=== PATIENT | female | born 1970 | race Caucasian/White ===

== ENCOUNTER 2019-12-23 12:30 | Outpatient (CLI) | payer BC ==
--- NOTE | 2019-12-23 14:02 | ULT ---
THYROID ULTRASOUND: 12/23/19 HISTORY: Goiter and hypothyroidism. COMPARISON: Comparison made to an outside thyroid ultrasound exam from [facility] dated 11/26/17. That exam de scribed enlarged heterogeneous thyroid lobes. A nodule in the right lobe was measured at 6.5 x 4.8 x 3.0 cm. A nodule in the left lobe was measured at 4.0 x 1.5 x 1.4 cm. FINDINGS: Both lobes are enlarged and very heterogeneous and have a similar appearance to the prior study. The large heterogeneous right lobe does not appear significantly changed. There are complex areas within this lobe with some cystic areas. A nodular area in the mid right lobe measures 5.3 x 3.5 x 2.8 cm to day and has a similar appearance to the prior exam. There are two nodular densities in the inferior r ight lobe, one near the isthmus, each measuring 2 to 3 cm which are difficult to define. These were n ot measured on the prior exam; however, the appearance in this region appears similar on both ultraso unds. Left lobe is very heterogeneous. A nodular area in the inferior left lobe today measures approximatel y 1.0 cm. the question nodule seen previously in the left lobe is not well delineated today. Right lobe measurements: 6.5 x 3.2 x 4.1 cm. Left lobe measurements: 5.5 x 1.7 x 1.7 cm. Isthmus: 0.3 cm. IMPRESSION: Both lobes are enlarged and heterogeneous. Both lobes show internal nodularity with discrete nodules difficult to delineate. Overall appearance appears stable from the outside exam of 11/26/17. POS: ATA
== END 2019-12-23 12:31 | disposition home or self-care (01) ==
LOC: SCSULT 12:30
PROVIDERS: ATTEND Internal Medicine Endocrinology, Diabetes & Metabolism
DX: E03.9 Hypothyroidism, unspecified (principal); E04.2 Nontoxic multinodular goiter
CPT/HCPCS: 76536

== ENCOUNTER 2022-02-17 08:00 | Inpatient (IN) | payer BC ==
[2022-02-17] MEDS ORDERED: Ondansetron ODT 4 MG TAB PO PRN (08:44)
[2022-02-17] MEDS ORDERED: Midazolam HCl 2 mg/2 ml Vial SLOW IVP PRN (08:47)
[2022-02-17 08:59] VITALS: BMI 22.4
[2022-02-17] MEDS ORDERED: Midazolam HCl 2 mg/2 ml Vial SLOW IVP SCH (09:00)
[2022-02-17] MEDS ORDERED: Famotidine/PF 20 mg/2ml Vial SLOW IVP SCH (09:00)
[2022-02-17] MEDS: Ondansetron PF 4 MG/2 ML Vial IVP PRN (09:25)
[2022-02-17] MEDS: Sodium Chloride 0.9% 1,000 ML IV SCH ×2 (09:25→23:29)
[2022-02-17] MEDS ORDERED: Piperacillin/Tazobactam 3.375 GM in Sodium Chloride 0.9% 100 ML IVPB SCH (10:00)
[2022-02-17 11:00] LABS: SARS-CoV-2 NAA Rapid Test Not Detected (NotDetected)
[2022-02-17] MEDS ORDERED: Succinylcholine 200 MG/10 ml SYRINGE FS ONE (11:17)
[2022-02-17] MEDS ORDERED: PROPOFOL 200 MG/20 ML VIAL ONE (11:17)
[2022-02-17] MEDS ORDERED: Rocuronium Bromide 10 MG/ML (10ML VIAL) ONE (11:17)
[2022-02-17] MEDS ORDERED: Dexamethasone 20 MG/5 ML VIAL ONE (11:17)
[2022-02-17] MEDS ORDERED: Ondansetron PF 4 MG/2 ML Vial ONE (11:17)
[2022-02-17] MEDS ORDERED: Lidocaine 1% MPF 2 ML VIAL ONE (11:17)
[2022-02-17] MEDS ORDERED: Morphine Sulfate 2 MG/ML SYRINGE SLOW IVP PRN (12:08)
[2022-02-17] MEDS ORDERED: Meperidine HCl/PF 25 MG/ML VIAL SLOW IVP PRN (12:08)
[2022-02-17] MEDS ORDERED: Promethazine HCl 25 MG/ML VIAL IVPB PRN (12:08)
[2022-02-17] MEDS ORDERED: Ondansetron HCl/PF 4 MG/2 ML Vial IVP PRN (12:08)
[2022-02-17] MEDS ORDERED: Promethazine HCl 25 MG/ML VIAL IM PRN (12:08)
[2022-02-17] MEDS ORDERED: Promethazine HCl 25 MG/ML VIAL ONE (12:26)
[2022-02-17] MEDS: Piperacillin/Tazobactam 3.375 GM in Sodium Chloride 0.9% 100 ML IVPB SCH ×2 (13:17→20:58)
[2022-02-17] MEDS: Promethazine HCl 12.5 MG in Sodium Chloride 0.9% 50 ML IVPB PRN ×2 (16:41→23:33)
[2022-02-17] MEDS: SUMAtriptan Succinate 6 MG/0.5 ML VIAL SC PRN (20:55)
[2022-02-17] MEDS: Pantoprazole 40 MG VIAL IVP SCH (20:56)
[2022-02-18] MEDS ORDERED: Promethazine HCl 12.5 MG in Sodium Chloride 0.9% 50 ML IVPB PRN (02:26)
[2022-02-18] MEDS ORDERED: clonazePAM 1 MG TAB PO PRN (04:00)
[2022-02-18] MEDS: Calcium Carbonate 500 MG ChewTAB PO PRN (04:30)
[2022-02-18] MEDS: Piperacillin/Tazobactam 3.375 GM in Sodium Chloride 0.9% 100 ML IVPB SCH ×3 (06:02→21:45)
[2022-02-18 06:17] LABS: #Lymphocytes 1.6 thou/uL (1.20-3.40); %Eosinophils 0.2 % (0.0-10.0); %Lymphocytes 16.9 % (21.0-51.0); %Monocytes 10.6 % (0.0-10.0); %Neutrophils 72.3 % (42.0-75.0); Mean Corpuscular HGB CONC 32.3 g/dL (32.0-36.0); Mean Corpuscular Volume 89.9 fL (78.0-98.0); Mean Platelet Volume 6.6 fL (7.4-10.4); Platelet Count 286 thou/uL (130-400); RBC Distribution Width 11.8 % (11.5-14.5); Red Blood Cell (RBC) Count 4.15 mill/uL (4.20-5.40); White Blood Cell (WBC) Count 9.7 thou/uL (4.8-10.8)
[2022-02-18 06:35] LABS: Anion Gap 14 mmol/L (10-20); BUN (Urea Nitrogen) 11 mg/dL (9.8-20.1); Calc. Creatinine Clearance 87 mL/min (70-130); Calcium 8.3 mg/dL (7.8-10.44); Carbon Dioxide 23 mmol/L (22-29); Chloride 105 mmol/L (98-107); Estimated GFR 89; Glucose 106 mg/dL (70-105); Sodium 138 mmol/L (136-145)
[2022-02-18] MEDS: Promethazine HCl 12.5 MG in Sodium Chloride 0.9% 50 ML IVPB PRN (09:05)
[2022-02-18] MEDS: Pantoprazole 40 MG VIAL IVP SCH ×2 (09:32→20:03)
[2022-02-18] MEDS: clonazePAM 1 MG TAB PO SCH ×2 (09:32→20:04)
[2022-02-18] MEDS: Sodium Chloride 0.9% 1,000 ML IV SCH (14:46)
[2022-02-18] MEDS: Promethazine HCl 25 MG in Sodium Chloride 0.9% 50 ML IVPB PRN ×2 (15:25→21:44)
[2022-02-18] MEDS: Ondansetron PF 4 MG/2 ML Vial IVP PRN (21:11)
[2022-02-19] MEDS: Calcium Carbonate 500 MG ChewTAB PO PRN ×2 (00:04→13:23)
[2022-02-19] MEDS: Sodium Chloride 0.9% 1,000 ML IV SCH (00:54)
[2022-02-19] MEDS: Ondansetron PF 4 MG/2 ML Vial IVP PRN (03:23)
[2022-02-19] MEDS: Promethazine HCl 25 MG in Sodium Chloride 0.9% 50 ML IVPB PRN (03:54)
[2022-02-19 05:12] LABS: #Eosinphils 0.1 thou/uL (0.0-0.7); #Lymphocytes 1.4 thou/uL (1.20-3.40); #Monocytes 0.7 thou/uL (0.11-0.59); #Neutrophils 5.9 thou/uL (1.40-6.50); %Basophils 0.5 % (0.0-1.0); %Eosinophils 1.1 % (0.0-10.0); %Lymphocytes 17.3 % (21.0-51.0); %Neutrophils 72.1 % (42.0-75.0); Hemoglobin 13.7 g/dL (12.0-16.0); Mean Corpuscular Hemoglobin 29.4 pg (27.0-31.0); Mean Corpuscular Volume 88.9 fL (78.0-98.0); Mean Platelet Volume 6.5 fL (7.4-10.4); Platelet Count 306 thou/uL (130-400); RBC Distribution Width 11.6 % (11.5-14.5); Red Blood Cell (RBC) Count 4.68 mill/uL (4.20-5.40); White Blood Cell (WBC) Count 8.1 thou/uL (4.8-10.8)
[2022-02-19 05:27] LABS: Anion Gap 13 mmol/L (10-20); BUN (Urea Nitrogen) 12 mg/dL (9.8-20.1); Calc. Creatinine Clearance 89 mL/min (70-130); Carbon Dioxide 28 mmol/L (22-29); Chloride 101 mmol/L (98-107); Estimated GFR 91; Glucose 98 mg/dL (70-105); Potassium 4.2 mmol/L (3.5-5.1); Sodium 138 mmol/L (136-145)
[2022-02-19] MEDS: Piperacillin/Tazobactam 3.375 GM in Sodium Chloride 0.9% 100 ML IVPB SCH (06:13)
[2022-02-19 08:52] VITALS: BP 135/81; TEMP 96.8
[2022-02-19] MEDS ORDERED: Estradiol 1 MG TAB PO SCH (09:00)
[2022-02-19] MEDS: Pantoprazole 40 MG VIAL IVP SCH (10:14)
[2022-02-19] MEDS: clonazePAM 1 MG TAB PO SCH (10:14)
[2022-02-19] MEDS: SUMAtriptan Succinate 6 MG/0.5 ML VIAL SC PRN (13:23)
[2022-02-19] MEDS ORDERED: Metoclopramide HCl 10 MG/2 ML VIAL IVP SCH (14:00)
== END 2022-02-19 16:25 | disposition home or self-care (01) | DRG 395 ==
LOC: MSONC 08:00 → OBSVTOIN 08:44
PROVIDERS: ADMIT Internal Medicine; ATTEND Internal Medicine
PROC: 0DBE8ZX Excision of Large Intestine, Via Natural or Artificial Opening Endoscopic, Diagnostic (ICD-10-PCS; principal; 2022-02-17)
PROC: 0DB68ZX Excision of Stomach, Via Natural or Artificial Opening Endoscopic, Diagnostic (ICD-10-PCS; 2022-02-17)
DX: K55.9 Vascular disorder of intestine, unspecified (principal); Z20.822 Contact with and (suspected) exposure to COVID-19; F41.9 Anxiety disorder, unspecified; E83.42 Hypomagnesemia; K29.60 Other gastritis without bleeding; E05.90 Thyrotoxicosis, unspecified without thyrotoxic crisis or storm; Z88.6 Allergy status to analgesic agent; Z90.710 Acquired absence of both cervix and uterus; Z90.49 Acquired absence of other specified parts of digestive tract; Z98.890 Other specified postprocedural states; Z82.3 Family history of stroke; Z83.49 Family history of other endocrine, nutritional and metabolic diseases; Z79.899 Other long term (current) drug therapy
CPT/HCPCS: 36415; 80048; 85025; 88305; 88342; 93306; C9113; J1100; J2250; J2405; J2543; J2550; J2704; J3030; J3490; J7050; S0028; U0002

== ENCOUNTER 2022-02-20 15:38 | Emergency (ER) | payer BC ==
[2022-02-20 16:30] LABS: #Basophils 0.1 thou/uL (0.0-0.2); #Eosinphils 0.4 thou/uL (0.0-0.7); #Lymphocytes 1.4 thou/uL (1.20-3.40); #Monocytes 0.8 thou/uL (0.11-0.59); #Neutrophils 6.8 thou/uL (1.40-6.50); %Basophils 0.9 % (0.0-1.0); %Eosinophils 4.2 % (0.0-10.0); %Lymphocytes 15.1 % (21.0-51.0); %Monocytes 8.3 % (0.0-10.0); %Neutrophils 71.4 % (42.0-75.0); Hemoglobin 14.7 g/dL (12.0-16.0); Mean Corpuscular HGB CONC 32.3 g/dL (32.0-36.0); Mean Corpuscular Hemoglobin 28.8 pg (27.0-31.0); Mean Platelet Volume 6.5 fL (7.4-10.4); Platelet Count 385 thou/uL (130-400); RBC Distribution Width 11.7 % (11.5-14.5); Red Blood Cell (RBC) Count 5.13 mill/uL (4.20-5.40); White Blood Cell (WBC) Count 9.5 thou/uL (4.8-10.8)
[2022-02-20 17:37] LABS: ALT (SGPT) 25 U/L (8-55); AST (SGOT) 16 U/L (5-34); Albumin 4.3 g/dL (3.5-5.0); Alkaline Phosphatase 109 U/L (40-110); Anion Gap 15 mmol/L (10-20); BUN (Urea Nitrogen) 21 mg/dL (9.8-20.1); Bilirubin, Total 0.4 mg/dL (0.2-1.2); Calc. Creatinine Clearance 0 mL/min (70-130); Calcium 9.5 mg/dL (7.8-10.44); Carbon Dioxide 26 mmol/L (22-29); Chloride 105 mmol/L (98-107); Estimated GFR 65; Globulin 2.8 g/dL (2.4-3.5); Glucose 101 mg/dL (70-105); Magnesium 2.1 mg/dL (1.6-2.6); Potassium 4.2 mmol/L (3.5-5.1); Protein, Total 7.1 g/dL (6.0-8.3); Sodium 142 mmol/L (136-145)
[2022-02-20] MEDS ORDERED: Famotidine/PF 20 mg/2ml Vial ONE (19:34)
[2022-02-20] MEDS ORDERED: Ondansetron PF 4 MG/2 ML Vial ONE (19:34)
== END 2022-02-20 21:04 | disposition home or self-care (01) ==
LOC: ERS 15:38
DX: R11.2 Nausea with vomiting, unspecified (principal)
CPT/HCPCS: 36415; 80053; 83605; 83735; 85025; 85379; 93005; 94760; 96374; 96375; J2405; S0028